=== PATIENT | female | born 1935 | race Caucasian/White ===

== ENCOUNTER 2016-06-19 13:06 | Emergency (ER) | payer MEDICARE, OTHER ==
[~2016-06-19] VITALS: Ht 170.2 cm; Wt 69.4 kg
[~2016-06-19 13:06] MED LIST: BREO ELLIPTA 11 EACH INH; CALCIUM 600 +1 EAC3 PO; FISH OIL1 GM PO; GLUCOTROL10 MG PO; HYDRALAZINE HCL50 MG PO; LASIX40 MG PO; LIPITOR10 MG PO; NORMODYNE100 MG PO; NORVASC10 MG PO; PRILOSEC20 MG PO; TRICOR145 MG PO
[2016-06-19] MEDS ORDERED: ARICEPT5 MG PO (15:06)
== END 2016-06-19 17:50 | disposition short-term general hospital (02) ==
LOC: ER 13:06
DX: R06.00 Dyspnea, unspecified (principal); R53.1 Weakness; R79.89 Other specified abnormal findings of blood chemistry; E11.22 Type 2 diabetes mellitus with diabetic chronic kidney disease; I13.2 Hypertensive heart and chronic kidney disease with heart failure and with stage 5 chronic kidney disease, or end stage renal disease; I50.9 Heart failure, unspecified; N18.6 End stage renal disease; D64.9 Anemia, unspecified; K21.9 Gastro-esophageal reflux disease without esophagitis; Z79.899 Other long term (current) drug therapy; Z79.84 Long term (current) use of oral hypoglycemic drugs; Z90.49 Acquired absence of other specified parts of digestive tract; Z90.710 Acquired absence of both cervix and uterus
CPT/HCPCS: J2543

== ENCOUNTER → 2016-07-13 | Outpatient (CLI) | payer MEDICARE, OTHER ==
[~2016-07-13] MED LIST changes: +ARICEPT5 MG PO
== END | disposition short-term general hospital (02) ==
LOC: CLCARD 08:01
DX: I13.0 Hypertensive heart and chronic kidney disease with heart failure and stage 1 through stage 4 chronic kidney disease, or unspecified chronic kidney disease (principal); I50.32 Chronic diastolic (congestive) heart failure; E11.22 Type 2 diabetes mellitus with diabetic chronic kidney disease; N18.4 Chronic kidney disease, stage 4 (severe); E78.5 Hyperlipidemia, unspecified

== ENCOUNTER → 2016-08-10 | Outpatient (CLI) | payer MEDICARE, OTHER | END | disposition short-term general hospital (02) | LOC: CLCARD 08:51 | DX: I13.0 Hypertensive heart and chronic kidney disease with heart failure and stage 1 through stage 4 chronic kidney disease, or unspecified chronic kidney disease (principal); I50.32 Chronic diastolic (congestive) heart failure; E11.22 Type 2 diabetes mellitus with diabetic chronic kidney disease; N18.9 Chronic kidney disease, unspecified; E78.5 Hyperlipidemia, unspecified; Z79.899 Other long term (current) drug therapy ==